=== PATIENT | female | born 1985 | race Caucasian/White ===

== ENCOUNTER 2017-05-25 09:34 | Inpatient (IN) | payer OTHER ==
[~2017-05-25] VITALS: Ht 162.6 cm; Wt 76.8 kg
[2017-05-25 09:30] VITALS: BP 114/57
[2017-05-25] MEDS ORDERED: PREN-3 PO (10:23)
[2017-05-25] MEDS: D5%-LACTATED RINGERS 1,000 ML IV SCH ×2 (12:24→20:24)
[2017-05-25] MEDS ORDERED: OXYTOCIN 30U/ 0.9% NaCL 500ML 500 ML IV ONE (12:24)
[2017-05-25] MEDS ORDERED: LACTATED RINGERS 1,000 ML IV SCH ×2 (12:24→17:30)
[2017-05-25] MEDS ORDERED: ONDANSETRON 2MG/ML, 2ML IVPush PRN ×2 (12:30→17:30)
[2017-05-25] MEDS ORDERED: FENTANYL PF 100 MCG/2ML IV PRN (12:30)
[2017-05-25] MEDS ORDERED: TERBUTALINE 1 MG/ML, 1ML IVPush PRN (12:30)
[2017-05-25] MEDS ORDERED: FENTANYL PF 100 MCG/2ML ONE ×3 (12:38→15:13)
[2017-05-25] MEDS: FENTANYL PF 100 MCG/2ML IVPush PRN ×2 (12:40→14:30)
[2017-05-25 12:51] LABS: HEMATOCRIT 41.7 % (34.6-47.8); HEMOGLOBIN 14.2 g/dL (11.7-16.4); WHITE BLOOD COUNT 17.4 x10^3/uL (3.4-10)
[2017-05-25] MEDS ORDERED: OXYTOCIN 30U/ 0.9% NaCL 500ML 500 ML ONE (13:30)
[2017-05-25] MEDS ORDERED: MISOPROSTOL 200 MCG TABLET ONE (13:30)
[2017-05-25] MEDS ORDERED: NEWBORN KIT ONE (13:30)
[2017-05-25] MEDS ORDERED: LIDOCAINE 1%, 20ML ONE (13:30)
[2017-05-25] MEDS ORDERED: FENTANYL/BUPIV./NS/PF 250 ML EPIDCONT ONE (15:13)
[2017-05-25] MEDS ORDERED: BUPIVACAINE 0.25% ONE (15:13)
[2017-05-25] MEDS ORDERED: LACTATED RINGERS 1,000 ML IVBOLUS PRN (17:30)
[2017-05-25] MEDS ORDERED: FENTANYL/BUPIV./NS/PF 250 ML EPIDCONT SCH (17:30)
[2017-05-25] MEDS ORDERED: EPHEDRINE 50 MG/ML, 1ML IVPush PRN (17:30)
[2017-05-25 20:02] VITALS: BP 93/55
[2017-05-26] MEDS ORDERED: MISOPROSTOL 200 MCG TABLET PR PRN ×2 (00:30→01:00)
[2017-05-26] MEDS ORDERED: OXYTOCIN 30U/ 0.9% NaCL 500ML 500 ML ONE (00:54)
[2017-05-26] MEDS ORDERED: IBUPROFEN 600 MG TABLET ONE (00:54)
[2017-05-26] MEDS: OXYTOCIN 30U/ 0.9% NaCL 500ML 500 ML IV SCH ×3 (00:56→20:44)
[2017-05-26] MEDS ORDERED: HYDROcodone/APAP 5/325 TABLET PO PRN ×2 (01:00)
[2017-05-26] MEDS ORDERED: OXYTOCIN 10 UNITS/ML, 1ML IM PRN (01:00)
[2017-05-26] MEDS ORDERED: ONDANSETRON 2MG/ML, 2ML IV PRN (01:00)
[2017-05-26] MEDS: IBUPROFEN 600 MG TABLET PO PRN ×4 (01:00→19:30)
[2017-05-26] MEDS ORDERED: CARBOPROST TROMETHAMINE 250 MCG/ML, 1ML IM PRN (01:00)
[2017-05-26] MEDS ORDERED: METHYLERGONOVINE 0.2 MG/ML IM PRN (01:00)
[2017-05-26] MEDS ORDERED: ACETAMINOPHEN 325 MG TABLET PO PRN (01:00)
[2017-05-26 02:30] VITALS: BP 103/55
[2017-05-26 03:19] VITALS: BP 96/53
[2017-05-26] MEDS: DOCUSATE 100 MG CAPSULE PO PRN ×2 (07:13→19:30)
[2017-05-26 07:22] VITALS: BP 99/60
[2017-05-26 08:20] LABS: HEMATOCRIT 38.5 % (34.6-47.8); WHITE BLOOD COUNT 16.1 x10^3/uL (3.4-10)
[2017-05-26] MEDS: PRENATAL VIT/IRON/FA 1 EACH TABLET PO SCH (09:00)
[2017-05-26 12:30] VITALS: BP 100/64
[2017-05-26] MEDS ORDERED: EPHEDRINE 50 MG/ML, 1ML ONE (13:15)
[2017-05-26 17:02] VITALS: BP 102/68
[2017-05-26 19:30] VITALS: BP 100/64
[2017-05-27] MEDS: IBUPROFEN 600 MG TABLET PO PRN ×3 (01:29→14:46)
[2017-05-27] MEDS: OXYTOCIN 30U/ 0.9% NaCL 500ML 500 ML IV SCH (06:44)
[2017-05-27 08:04] VITALS: BP 100/61
[2017-05-27] MEDS: DOCUSATE 100 MG CAPSULE PO PRN (08:04)
[2017-05-27] MEDS: PRENATAL VIT/IRON/FA 1 EACH TABLET PO SCH (08:08)
== END 2017-05-27 15:20 | disposition home or self-care (01) | DRG 775 ==
LOC: LDOP 09:34 → LDIP 12:37 → 2NW 05-26 02:28
PROVIDERS: ADMIT Obstetrics & Gynecology; ATTEND Obstetrics & Gynecology
PROC: 10E0XZZ Delivery of Products of Conception, External Approach (ICD-10-PCS; principal; 2017-05-26)
PROC: 0KQM0ZZ Repair Perineum Muscle, Open Approach (ICD-10-PCS; 2017-05-26)
DX: O99.52 Diseases of the respiratory system complicating childbirth (principal); O99.344 Other mental disorders complicating childbirth; F41.9 Anxiety disorder, unspecified; J45.909 Unspecified asthma, uncomplicated; O70.1 Second degree perineal laceration during delivery; Z37.0 Single live birth; Z3A.40 40 weeks gestation of pregnancy
CPT/HCPCS: 36415; 81003; 85025; 86850; 86900; J3010; J2590; J7120